=== PATIENT | male | born 1945 | race Hispanic/Latino ===

== ENCOUNTER 2018-01-28 09:19 | Observation (INO) | payer BC ==
--- NOTE | 2018-01-28 09:19 | EDPD ---
HPI Stroke - General Chief Complaint: Weakness/Neurological Deficit Historian: Patient, EMS - History of Present Illness Narrative History of Present Illness (Free Text): 01/28/18 9:18 Patient brought by EMS to the Emergency department for leg weakness and slurred speech. EMS states that patient stated he had symptoms 30 minutes prior to arrival. On site BP was 212/108. patient states that he currently feels fine and states that his slurred speech lasted 5-10 minutes and resolved prior to EMS arrival. Patient denies any history of facial symptoms in the past. Patient denies fevers, chills, cough, shortness of breath, chest pain, dyspnea on exertion, abdominal pain, nausea, vomiting, diarrhea, back pain, neck pain, headache, dizziness, or any other complaint. Onset:: This morning Timing: Improved Context: Home - Location Location: Speech (slurred speech improved 30min prior to arrival) rTPA Inclusion/Exclusion - Refusal of Treatment Patient Refused Treatment: No - Inclusion Criteria for Altepase Patient is 18 years or Older: Yes The Clinical Diagnosis of Ischemic Stroke That is Causing a Potentially Disabling Neurological Deficit: Yes Time of Onset is Well Established to be Less Than 270 Minute Before Treatment Would Begin: Yes Risk/Benefit Discussed With Patient/Family Member Present: No Past Medical History - Provider Review Nursing Documentation Reviewed: Yes - Infectious Disease Hx of Infectious Diseases: None - Tetanus Immunization Tetanus Immunization: Unknown - Cardiac Hx Pacemaker: No - Pulmonary Hx Chronic Obstructive Pulmonary Disease (COPD): Yes - Neurological Hx Paralysis: No - HEENT Hx HEENT Disorder: No - Renal Hx Renal Disorder: No - Endocrine/Metabolic Hx Endocrine Disorders: No - Hematological/Oncological Hx Blood Transfusions: No Hx Blood Transfusion Reaction: No - Integumentary Hx Dermatological Disorder: No - Musculoskeletal/Rheumatological Hx Musculoskeletal Disorders: No - Gastrointestinal Hx Gastrointestinal Disorders: No - Genitourinary/Gynecological Hx Genitourinary Disorders: No - Psychiatric Hx Emotional Abuse: No Hx Physical Abuse: No Hx Substance Use: No - Anesthesia Hx Anesthesia: Yes Hx Anesthesia Reactions: No Hx Malignant Hyperthermia: No - Suicidal Assessment Feels Threatened In Home Enviroment: No Allergies/Home Meds Allergies/Adverse Reactions: Allergies No Known Allergies Allergy (Verified 08/13/14 16:25) Home Medications: Home Meds Medication Instructions Recorded Confirmed Multivitamin and [id number] 1 tab PO DAILY 04/28/12 01/28/18 [Centrum Silver] Budesonide/Formoterol Fumarate 2 puff INH DAILY 08/13/14 01/28/18 [Symbicort] Tiotropium [place] Inhaler 2 puff INH DAILY 08/13/14 01/28/18 [Spiriva Inhalation Handihaler Device] Review of Systems - Physician Review All systems were reviewed & negative as marked: Yes - Review of Systems Constitutional: absent: Fevers, Night Sweats Respiratory: absent: SOB Cardiovascular: absent: Chest Pain Neurological: Speech Changes (slurred speech), Other (lower extremity weakness.) ED Stroke Physical Exam Vital Signs Reviewed: Yes Temperature: Afebrile Blood Pressure: Hypertensive Pulse: Regular Respiratory Rate: Normal Mental Status: Positive for: Alert and Oriented X 3 - Systems Exam Head: Present: Atraumatic, Normocephalic Pupils: Present: PERRL Extroacular Muscles: Present: EOMI Conjunctiva: Present: Normal Mouth: Present: Moist Mucous Membranes Neck: Present: Normal Range of Motion Respiratory/Chest: Present: Clear to Auscultation, Good Air Exchange. No: Respiratory Distress, Accessory Muscle Use Cardiovascular: Present: Regular Rate and Rhythm, Normal S1, S2. No: Murmurs Abdomen: Present: Normal Bowel Sounds. No: Tenderness, Distention, Peritoneal Signs Back: Present: GCS, CN, SP Upper Extremity: Present: Normal Inspection. No: Cyanosis, Edema Lower Extremity: Present: Normal Inspection. No: Edema Neurologic: Present: Other (Right sided facial weakness) Skin: Present: Warm, Dry, Normal Color. No: Rashes Lymphatic: Present: OX3, NI, NC Psychiatric: Present: Alert, Oriented x 3, Normal Insight, Normal Concentration Medical Decision Making ED Course and Treatment: 01/28/18 10:03 Impression: 72 year old male who was brought to the Emergency department by EMS for stroke evaluation. Differential Diagnosis included but are not limited to: TIA Plan: --EKG -- Labs -- Head CT without contrast -- Chest X-ray -- Aspirin -- IV fluids -- Reassess and disposition Prior Visits: Notes and results from previous visits were reviewed. Progress Notes: 01/28/18 EKG shows NSR at 78 bpm, otherwise normal. Interpreted by me. 01/28/18 9:18 Code Stroke called. 01/28/18 9:29 Discussed case with , who stated patient is not a candidate for TPA due to low NIH and quickly resolving symptoms. 01/28/18 09:[address] without contrast: Dictator : Femi Alves MD FINDINGS: HEMORRHAGE: No intracranial hemorrhage. BRAIN: No mass effect or edema. Chronic microvascular changes are seen in the basal ganglia. VENTRICLES: Unremarkable. No hydrocephalus. CALVARIUM: Unremarkable. PARANASAL SINUSES: Unremarkable as visualized. No significant inflammatory changes. MASTOID AIR CELLS: Unremarkable as visualized. No inflammatory changes. OTHER FINDINGS: None. IMPRESSION: No acute findings 01/28/18 09:58 Treated patient with aspirin per rectum because patient was unable to take medication PO due to failed swallow study. 01/28/18 10:54 Reevaluation shows now a NIHSS of zero. Discussed case with , who is aware of and accepts patient under his service. He also requests Dr. Cisneros on consult for neurology. 01/28/18 Chest X-ray: Dictator : Femi Alves MD FINDINGS: LUNGS: No active pulmonary disease. PLEURA: No significant pleural effusion identified, no pneumothorax apparent.\ CARDIOVASCULAR: Normal. OSSEOUS STRUCTURES: No significant abnormalities. VISUALIZED UPPER ABDOMEN: Normal. OTHER FINDINGS: None. IMPRESSION: No active disease. - Critical Care Critical Care Minutes: 30 minutes - RAD Interpretation Radiology Orders: 01/28/18 09:17 HEAD W/O (CODE STROKE) [CT] Stat CHEST PORTABLE [RAD] Stat - EKG Interpretation Interpreted by ED Physician: Yes Type: 12 lead EKG NIHSS Scale([place]) 2 Time Performed: 10:42 - How Severe is the Stoke Baseline Level of Consciousness: 0=Alert LOC to Questions: 0=Both comments correct LOC to commands: 0=Obeys both correctly Best Gaze: 0=Normal Visual: 0=No visual loss Facial: 0=Normal Motor Arm - Left: 0=No drift Motor Arm - Right: 0=No drift Motor Leg - Left: 0=No drift Motor Leg - Right: 0=No drift Limb Ataxia: 0=Absent Sensory: 0=Normal Best Language: 0=No aphasia Dysarthia: 0=Normal articulation Extinction & Inattention (Neglect): 0=Normal, no object Score: 0 Risk Level: No Stroke Risk - Scribe Statement The provider has reviewed the documentation as recorded by the Justin Daniel Provider Scribe Attestation: All medical record entries made by the Scribe were at my direction and personally dictated by me. I have reviewed the chart and agree that the record accurately reflects my personal performance of the history, physical exam, medical decision making, and the department course for this patient. I have also personally directed, reviewed, and agree with the discharge instructions and disposition. NIHSS Scale ([place]) Time Performed: 09:18 - How Severe is the Stoke Baseline Level of Consciousness: 0=Alert LOC to Questions: 0=Both comments correct LOC to commands: 0=Obeys both correctly Best Gaze: 0=Normal Visual: 0=No visual loss Facial: 1=Minor asymmetry Motor Arm - Left: 0=No drift Motor Arm - Right: 0=No drift Motor Leg - Left: 0=No drift Motor Leg - Right: 0=No drift Limb Ataxia: 0=Absent Sensory: 0=Normal Best Language: 0=No aphasia Dysarthia: 0=Normal articulation Extinction & Inattention (Neglect): 0=Normal, no object Score: 1 Risk Level: Minor Stroke Risk Disposition/Present on Arrival - Present on Arrival Any Indicators Present on Arrival: No History of DVT/PE: No History of Uncontrolled Diabetes: No Urinary Catheter: No History Surgical Site Infection Following: None - Disposition Have Diagnosis and Disposition been Completed?: Yes Diagnosis: TIA (transient ischemic attack) Disposition: HOSPITALIZED Disposition Time: 10:42 Patient Plan: Observation Condition: FAIR
[2018-01-28 09:37] LABS: BASO # 0.02 K/mm3 (0.0-2.0); BASO % 0.3 % (0.0-3.0); EOS # 0.1 (0.0-0.7); EOS % 1.4 % (1.5-5.0); GRAN # 4.14 (1.4-6.5); GRAN % 57.6 % (50.0-68.0); HEMOGLOBIN 13.8 g/dL (14.0-18.0); LYMPH # 2.2 (1.2-3.4); LYMPH % 30.8 % (22.0-35.0); MEAN CELL VOLUME 91.1 fl (80.0-105.0); MEAN CORPUSCULAR HEMOGLOBIN 31.4 pg (25.0-35.0); MEAN CORPUSCULAR HGB CONC 34.5 g/dl (31.0-37.0); MEAN PLATELET VOLUME 9.5 fl (7.0-11.0); MONO # 0.7 (0.1-0.6); MONO % 9.9 % (1.0-6.0); RBC 4.39 10^6/uL (3.5-6.1); RED CELL DISTRIBUTION WIDTH 11.9 % (11.5-14.5); WHITE BLOOD COUNT 7.2 10^3/ul (4.5-11.0)
[2018-01-28 09:45] LABS: ALB/GLOB RATIO 1.2 (1.1-1.8); ALT/SGPT 21 U/L (7-56); AST/SGOT 21 U/L (17-59); BLOOD UREA NITROGEN 16 mg/dL (7-21); CALCIUM 9.3 mg/dL (8.4-10.5); GFR NON-AFRICAN AMERICAN > 60; HDL CHOLESTEROL 34 mg/dL (29-60); INR 1.12; PARTIAL THROMBOPLASTIN TIME 69.1 Seconds (25.1-36.5); PROTHROMBIN TIME 12.9 SECONDS (9.4-12.5)
[2018-01-28 09:56] LABS: LDL CHOLESTEROL 89 mg/dL (0-129)
[2018-01-28 09:59] LABS: TROPONIN I < 0.01 ng/mL
--- NOTE | 2018-01-28 09:59 | CT ---
Date of service: 01/28/2018 PROCEDURE: CT HEAD WITHOUT CONTRAST. HISTORY: Code Stroke COMPARISON: None available. TECHNIQUE: Axial computed tomography images were obtained through the head/brain without intravenous contrast. Radiation dose: Total exam DLP = 988 mGy-cm. This CT exam was performed using one or more of the following dose reduction techniques: Automated exposure control, adjustment of the mA and/or kV according to patient size, and/or use of iterative reconstruction technique. FINDINGS: HEMORRHAGE: No intracranial hemorrhage. BRAIN: No mass effect or edema. Chronic microvascular changes are seen in the basal ganglia. VENTRICLES: Unremarkable. No hydrocephalus. CALVARIUM: Unremarkable. PARANASAL SINUSES: Unremarkable as visualized. No significant inflammatory changes. MASTOID AIR CELLS: Unremarkable as visualized. No inflammatory changes. OTHER FINDINGS: None. IMPRESSION: No acute findings
--- NOTE | 2018-01-28 10:07 | RAD ---
Date of service: 01/28/2018 HISTORY: Code Stroke COMPARISON: 08/13/2014 FINDINGS: LUNGS: No active pulmonary disease. PLEURA: No significant pleural effusion identified, no pneumothorax apparent. CARDIOVASCULAR: Normal. OSSEOUS STRUCTURES: No significant abnormalities. VISUALIZED UPPER ABDOMEN: Normal. OTHER FINDINGS: None. IMPRESSION: No active disease.
[2018-01-28] MEDS: Sodium Chloride 0.9% 1,000 ML IV SCH (10:56)
[2018-01-28] MEDS ORDERED: Albuterol-Ipratrop 3 mg / 0.5 (3 ml) UD IH PRN (11:33)
--- NOTE | 2018-01-28 11:34 | CP.PCM.HP ---
<Yassine Mcgeeystal - Last Filed: 01/28/18 12:32> History of Present Illness - History of Present Illness History of Present Illness: H&P for Iván Thayer PGY3 This is a 72yo male with past medical history of COPD, tobacco abuse, venous stasis, borderline HTN who came to ED for sudden weakness and slurred speech. Patient reports he was at work when all of a sudden his legs felt like "jelly" and his speech was slurred according to a friend. This has never happened before. The symptoms lasted 5-10 minutes and resolved prior to arrival. EMS report that patients SBP was >200s. He did not have vision changes, chest pain, headache, shortness of breath, nausea/vomiting/diarrhea, fever/chills. Past medical history: COPD, tobacco abuse, venous stasis, borderline HTN Past surgical history: R inguinal hernia repair, tonsillectomy, sclerotherapy Home meds: Reviewed as per MAR Allergies: NKDA Social history: Smokes 1ppd x 30+yrs, Denies EtoH or drug use. Works at [employer]. Independent in all ADLs Family history: Daughter: . Parents: - doesnt remember from what. Maternal grandma: from cerebral aneurysm Present on Admission - Present on Admission Any Indicators Present on Admission: No Review of Systems - Review of Systems All systems: reviewed and no additional remarkable complaints except Review of Systems: 12 point ROS reviewed as per HPI and is otherwise negative Past Patient History - Infectious Disease Hx of Infectious Diseases: None - Tetanus Immunizations Tetanus Immunization: Unknown - Past Social History Smoking Status: Light Smoker < 10 Cigarettes Daily - CARDIAC Hx Pacemaker: No - PULMONARY Hx Chronic Obstructive Pulmonary Disease (COPD): Yes - NEUROLOGICAL Hx Paralysis: No - HEENT Hx HEENT Problems: No - RENAL Hx Chronic Kidney Disease: No - ENDOCRINE/METABOLIC Hx Endocrine Disorders: No - HEMATOLOGICAL/ONCOLOGICAL Hx Blood Transfusions: No Hx Blood Transfusion Reaction: No - INTEGUMENTARY Hx Dermatological Problems: No - MUSCULOSKELETAL/RHEUMATOLOGICAL Hx Musculoskeletal Disorders: No - GASTROINTESTINAL Hx Gastrointestinal Disorders: No - GENITOURINARY/GYNECOLOGICAL Hx Genitourinary Disorders: No - PSYCHIATRIC Hx Emotional Abuse: No Hx Physical Abuse: No Hx Substance Use: No - SURGICAL HISTORY Hx Surgeries: Yes (MOES PROCEDURE, TONSILLECTOMY, CIRCUMCISION, VASECTOMY) - ANESTHESIA Hx Anesthesia: Yes Hx Anesthesia Reactions: No Hx Malignant Hyperthermia: No Meds Allergies/Adverse Reactions: Allergies Allergy/AdvReac Type Severity Reaction Status Date / Time No Known Allergies Allergy Verified 08/13/14 16:25 Physical Exam - Constitutional Appears: No Acute Distress - Head Exam Head Exam: ATRAUMATIC, NORMAL INSPECTION, NORMOCEPHALIC - Eye Exam Eye Exam: Normal appearance, PERRL Pupil Exam: NORMAL ACCOMODATION, PERRL - ENT Exam ENT Exam: Mucous Membranes Moist - Respiratory Exam Respiratory Exam: Clear to Auscultation Bilateral, NORMAL BREATHING PATTERN. absent: Rales, Rhonchi, Wheezes - Cardiovascular Exam Cardiovascular Exam: REGULAR RHYTHM, +S1, +S2. absent: Gallop, Rubs, Systolic Murmur - GI/Abdominal Exam GI & Abdominal Exam: Normal Bowel Sounds, Soft. absent: Mass, Rebound, Rigid, Tenderness - Extremities Exam Extremities exam: Positive for: normal inspection. Negative for: calf tenderness, pedal edema - Expanded Neurological Exam Expanded Patient oriented to: person, place, time Cranial nerves: EOM's Intact: Normal, Facial Palsey w/Forehead Movement: Normal, Facial Palsey w/o Forehead Movement: Normal, Facial Sensation: Normal, Tongue Deviation: Normal Upper motor neuron: De Neglect: Normal, Pronator Drift: Normal Sensory exam: Lower Extremity Light Touch: Normal, Upper Extremity Light Touch: Normal Neuro motor strength exam: Left Upper Extremity: 5, Right Upper Extremity: 5, Left Lower Extremity: 5, Right Lower Extremity: 5 Coma Scale Eye Opening: SPONTANEOUS Coma Scale Motor Response: OBEYS COMMANDS Coma Scale Verbal: Oriented Coma Scale Total: 15 - Psychiatric Exam Psychiatric exam: Normal Affect, Normal Mood - Skin Skin Exam: Dry, Intact, Warm Results - Vital Signs Recent Vital Signs: Last Vital Signs Temp 98.4 F 01/28/18 09:14 Pulse 79 01/28/18 09:47 Resp 18 01/28/18 09:47 BP 173/70 H 01/28/18 09:47 Pulse Ox 98 01/28/18 09:47 - Labs Result Diagrams: 01/28/18 09:15 01/28/18 09:15 Labs: Laboratory Results - last 24 hr 01/28/18 01/28/18 01/28/18 09:15 09:15 09:15 WBC 7.2 RBC 4.39 Hgb 13.8 L Hct 40.0 L MCV 91.1 MCH 31.4 MCHC 34.5 RDW 11.9 Plt Count 214 MPV 9.5 Gran % 57.6 Lymph % (Auto) 30.8 [place] % (Auto) 9.9 H Eos % (Auto) 1.4 L Baso % (Auto) 0.3 Gran # 4.14 Lymph # (Auto) 2.2 [place] # (Auto) 0.7 H Eos # (Auto) 0.1 Baso # (Auto) 0.02 PT 12.9 H INR 1.12 APTT 69.1 H Sodium 142 Potassium 4.1 Chloride 107 Carbon Dioxide 27 Anion Gap 12 BUN 16 Creatinine 1.1 Est GFR ( Amer) > 60 Est GFR (Non-Af Amer) > 60 Random Glucose 105 Calcium 9.3 Total Bilirubin 0.7 AST 21 ALT 21 Alkaline Phosphatase 111 Troponin I < 0.01 Total Protein 7.3 Albumin 4.0 Globulin 3.3 Albumin/Globulin Ratio 1.2 Triglycerides 76 Cholesterol 140 LDL Cholesterol Direct 89 HDL Cholesterol 34 Assessment & Plan - Assessment and Plan (Free Text) Assessment: 1. TIA 2. Hypertensive urgency 3. COPD 4. Tobacco abuse Plan: Labs and imaging reviewed. Neurology consulted. Head CT negative. Patient is on ASA and Lipitor. Will get PT and swallow eval. MRI and carotid dopplers ordered as per neuro. Permissive HTN for 24hrs. Spiriva and duonebs for COPD. Nicotine patch for tobacco abuse. Patient is on IV fluids. Case seen, discussed and reviewed with Dr. Anant Mcgee PGY3 - Date & Time Date: 01/28/18 Time: 12:48 <Tra Menezes - Last Filed: 01/30/18 19:31> Results - Vital Signs Recent Vital Signs: Last Vital Signs Temp 98.4 F 01/29/18 12:00 Pulse 80 01/29/18 14:00 Resp 20 01/29/18 12:00 BP 151/73 H 01/29/18 12:00 Pulse Ox 95 01/28/18 13:41 - Labs Result Diagrams: 01/28/18 09:15 01/28/18 09:15 Assessment & Plan - Assessment and Plan (Free Text) Plan: Pt seen and examined by me. I have reviewed the note by the medical records assistant. The case was discussed and reviewed with the resident. I reviewed the medications and labs. Pt had a TIA that has resolved. He is on ASA and Lipitor. MRI has been reviewed. BP will be checked as outpt. He is on a nicotine patch. He was advised to quit smoking. COPD is controlled.
[2018-01-28 12:04] VITALS: O2SAT 95
--- NOTE | 2018-01-28 14:37 | CARD ---
APPROVED REPORT Date of service: 01/28/2018 EKG Measurement Heart [id number] <Conclusion> Normal sinus rhythm Normal ECG
--- NOTE | 2018-01-28 18:02 | US ---
PROCEDURE: Bilateral carotid artery duplex ultrasound HISTORY: Carotid stenosis TIA PHYSICIAN(S): Phan Montiel MD. TECHNIQUE: Duplex sonography and color-flow Doppler were used to evaluate the carotid bifurcations and limited segments of the vertebral arteries bilaterally. FINDINGS: There is mild to moderate smooth heterogeneous diffuse echogenic plaque noted at the carotid bifurcations bilaterally. The peak systolic velocity in the proximal right internal carotid artery is 87 cm/sec. This corresponds to a 20 to 39% proximal right ICA stenosis. Normal systolic velocities are noted in the proximal right external carotid artery. There is antegrade flow in the right vertebral artery. The peak systolic velocity in the proximal left internal carotid artery is 76 cm/sec. This corresponds to a 20 to 39% proximal left ICA stenosis. Normal systolic velocities are noted in the proximal left external carotid artery. There is antegrade flow in the left vertebral artery. IMPRESSION: 1. Bilateral 20-39% proximal ICA stenoses. 2. Antegrade flow in both vertebral arteries.
[2018-01-28 20:58] VITALS: BMI 23.8
[2018-01-28] MEDS ORDERED: Influenza Vaccine 60 mcg/0.5 mL SYR (4YR UP) IM ONE (20:59)
[2018-01-28] MEDS ORDERED: Pneumococcal 23-Valent Vaccine IM ONE (20:59)
--- NOTE | 2018-01-28 23:32 | CON ---
DATE: 01/28/2018 HISTORY OF PRESENT ILLNESS: This is a 72-year-old male with past medical history of high blood pressure and went to the market and felt that legs were giving away and also had slurred speech for 5 to 10 minutes and blood pressure was noted to be very high 212/108. Denies any other numbness, tingling. Called to evaluate the patient. PAST MEDICAL HISTORY: High blood pressure, COPD. ALLERGIES: NO KNOWN DRUG ALLERGY. HOME MEDICATIONS : Symbicort and Spiriva inhaler. REVIEW OF SYSTEMS: Ten point review of systems was negative except some slurred speech. PHYSICAL EXAMINATION: HEENT: Normocephalic, atraumatic. NECK: Supple. NEUROLOGIC EXAM: Alert, awake, orientated x3. No aphasia. Cranial nerves II through XII were tested. Pupils reactive. EOM intact. Visual field full. No facial asymmetry. Tongue midline. Motor examination: Moves all the extremities equally. Tone normal. Deep tendon reflexes 1+. Both plantars are downgoing. Sensory appears intact. Cerebellar, gait deferred. IMPRESSION: Transient ischemic attack, possible in the left middle cerebral artery territory. CAT scan of the head was done, which is reported negative for bleed or infarct. We will continue the workup and carotid Doppler and give aspirin and workup in progress. We will follow it up. We also do the MRI of the head, with and without. Austin Cisneros MD
[2018-01-29 06:05] VITALS: RESP 20
[2018-01-29] MEDS: Sodium Chloride 0.9% 1,000 ML IV SCH (09:50)
[2018-01-29] MEDS ORDERED: Tiotropium 18 mcg Cap For Inhalation IH SCH (10:00)
--- NOTE | 2018-01-29 13:31 | CP.PCM.DIS ---
Addendum entered and electronically signed by Roselyn Mcgee DO 01/29/18 16:59: Spoke with Radiologist, Dr. Perry who states MRI was negative. Original Note: <Roselyn Mcgee - Last Filed: 01/29/18 13:19> Provider - Provider Date of Admission: 01/28/18 10:42 Attending physician: Tra Menezes MD Primary care physician: Wu Manning MD Consults: Neuro: Blayne Time Spent in preparation of Discharge (in minutes): 35 Hospital Course - Lab Results Lab Results: Most Recent Lab Values WBC 7.2 10^3/ul (4.5-11.0) 01/28/18 09:15 RBC 4.39 10^6/uL (3.5-6.1) 01/28/18 09:15 Hgb 13.8 g/dL (14.0-18.0) L 01/28/18 09:15 Hct 40.0 % (42.0-52.0) L 01/28/18 09:15 MCV 91.1 fl (80.0-105.0) 01/28/18 09:15 MCH 31.4 pg (25.0-35.0) 01/28/18 09:15 MCHC 34.5 g/dl (31.0-37.0) 01/28/18 09:15 RDW 11.9 % (11.5-14.5) 01/28/18 09:15 Plt Count 214 10^3/uL (120.0-450.0) 01/28/18 09:15 MPV 9.5 fl (7.0-11.0) 01/28/18 09:15 Gran % 57.6 % (50.0-68.0) 01/28/18 09:15 Lymph % (Auto) 30.8 % (22.0-35.0) 01/28/18 09:15 [place] % (Auto) 9.9 % (1.0-6.0) H 01/28/18 09:15 Eos % (Auto) 1.4 % (1.5-5.0) L 01/28/18 09:15 Baso % (Auto) 0.3 % (0.0-3.0) 01/28/18 09:15 Gran # 4.14 (1.4-6.5) 01/28/18 09:15 Lymph # (Auto) 2.2 (1.2-3.4) 01/28/18 09:15 [place] # (Auto) 0.7 (0.1-0.6) H 01/28/18 09:15 Eos # (Auto) 0.1 (0.0-0.7) 01/28/18 09:15 Baso # (Auto) 0.02 K/mm3 (0.0-2.0) 01/28/18 09:15 PT 12.9 SECONDS (9.4-12.5) H 01/28/18 09:15 INR 1.12 01/28/18 09:15 APTT 69.1 Seconds (25.1-36.5) H 01/28/18 09:15 Sodium 142 mmol/L (132-148) 01/28/18 09:15 Potassium 4.1 mmol/L (3.6-5.0) 01/28/18 09:15 Chloride 107 mmol/L (98-107) 01/28/18 09:15 Carbon Dioxide 27 mmol/L (21-33) 01/28/18 09:15 Anion Gap 12 (10-20) 01/28/18 09:15 BUN 16 mg/dL (7-21) 01/28/18 09:15 Creatinine 1.1 mg/dl (0.8-1.5) 01/28/18 09:15 Est GFR ( Amer) > 60 01/28/18 09:15 Est GFR (Non-Af Amer) > 60 01/28/18 09:15 Random Glucose 105 mg/dL (70-110) 01/28/18 09:15 Hemoglobin A1c 5.8 % (4.2-6.5) 01/28/18 09:15 Calcium 9.3 mg/dL (8.4-10.5) 01/28/18 09:15 Total Bilirubin 0.7 mg/dL (0.2-1.3) 01/28/18 09:15 AST 21 U/L (17-59) 01/28/18 09:15 ALT 21 U/L (7-56) 01/28/18 09:15 Alkaline Phosphatase 111 U/L (38-126) 01/28/18 09:15 Troponin I < 0.01 ng/mL 01/28/18 09:15 Total Protein 7.3 g/dL (5.8-8.3) 01/28/18 09:15 Albumin 4.0 g/dL (3.0-4.8) 01/28/18 09:15 Globulin 3.3 gm/dL 01/28/18 09:15 Albumin/Globulin Ratio 1.2 (1.1-1.8) 01/28/18 09:15 Triglycerides 76 mg/dL (35-160) 01/28/18 09:15 Cholesterol 140 mg/dL (130-200) 01/28/18 09:15 LDL Cholesterol Direct 89 mg/dL (0-129) 01/28/18 09:15 HDL Cholesterol 34 mg/dL (29-60) 01/28/18 09:15 Blood Type B POSITIVE 01/28/18 09:20 Blood Type Confirm B POSITIVE 01/28/18 15:30 Antibody Screen Negative 01/28/18 09:20 BBK History Checked No verified bt 01/28/18 09:20 - Hospital Course Hospital Course: This is a 72yo male with past medical history of COPD, tobacco abuse, venous stasis, borderline HTN who was admitted for TIA. Patient had head CT which was negative for acute abnormalities. Carotid US showed 20-39% stenosis bilaterally. Patient was placed on ASA and Lipitor. He was evaluated by neurology. Patient will get MRI of the brain. If there are no acute abnormalities, patient will be d/c home with ASA and Lipitor. He will follow up with his PMD. Patient advised on smoking cessation. He does not have any focal neurological deficits. Patient verbalized and agreed with discharge plan. - Date & Time of H&P Date of H&P: 01/28/18 Time of H&P: 06:00 Discharge Exam - Head Exam Head Exam: ATRAUMATIC, NORMAL INSPECTION, NORMOCEPHALIC - Eye Exam Eye Exam: Normal appearance, PERRL Pupil Exam: NORMAL ACCOMODATION, PERRL - ENT Exam ENT Exam: Mucous Membranes Moist - Respiratory Exam Respiratory Exam: Clear to PA & Lateral, NORMAL BREATHING PATTERN, UNREMARKABLE. absent: Rhonchi, Wheezes, Stridor - Cardiovascular Exam Cardiovascular Exam: REGULAR RHYTHM, +S1, +S2. absent: Gallop, Rubs, Systolic Murmur - GI/Abdominal Exam GI & Abdominal Exam: Normal Bowel Sounds, Soft, Unremarkable. absent: Rebound, Rigid, Tenderness - Extremities Exam Extremities exam: normal inspection - Neurological Exam Neurological exam: Alert, CN II-XII Intact, Oriented x3 - Psychiatric Exam Psychiatric exam: Normal Affect, Normal Mood - Skin Skin Exam: Dry, Intact, Warm Discharge Plan - Discharge Medications Prescriptions: RX: Aspirin [Aspirin Chewable] 81 mg PO DAILY #30 chew RX: Atorvastatin [Lipitor] 20 mg PO DIN #30 tab - Follow Up Plan Condition: FAIR Disposition: HOME/ ROUTINE Additional Instructions: 1. Take Aspirin and Lipitor daily 2. Follow up with primary doctor to monitor blood pressure 3. Recommend smoking cessation Referrals: Wu Manning MD [Primary Care Provider] - <Tra Menezes - Last Filed: 01/29/18 14:11> Provider - Provider Date of Admission: 01/28/18 10:42 Attending physician: Tra Menezes MD Primary care physician: Wu Manning MD Hospital Course - Lab Results Lab Results: Most Recent Lab Values WBC 7.2 10^3/ul (4.5-11.0) 01/28/18 09:15 RBC 4.39 10^6/uL (3.5-6.1) 01/28/18 09:15 Hgb 13.8 g/dL (14.0-18.0) L 01/28/18 09:15 Hct 40.0 % (42.0-52.0) L 01/28/18 09:15 MCV 91.1 fl (80.0-105.0) 01/28/18 09:15 MCH 31.4 pg (25.0-35.0) 01/28/18 09:15 MCHC 34.5 g/dl (31.0-37.0) 01/28/18 09:15 RDW 11.9 % (11.5-14.5) 01/28/18 09:15 Plt Count 214 10^3/uL (120.0-450.0) 01/28/18 09:15 MPV 9.5 fl (7.0-11.0) 01/28/18 09:15 Gran % 57.6 % (50.0-68.0) 01/28/18 09:15 Lymph % (Auto) 30.8 % (22.0-35.0) 01/28/18 09:15 [place] % (Auto) 9.9 % (1.0-6.0) H 01/28/18 09:15 Eos % (Auto) 1.4 % (1.5-5.0) L 01/28/18 09:15 Baso % (Auto) 0.3 % (0.0-3.0) 01/28/18 09:15 Gran # 4.14 (1.4-6.5) 01/28/18 09:15 Lymph # (Auto) 2.2 (1.2-3.4) 01/28/18 09:15 [place] # (Auto) 0.7 (0.1-0.6) H 01/28/18 09:15 Eos # (Auto) 0.1 (0.0-0.7) 01/28/18 09:15 Baso # (Auto) 0.02 K/mm3 (0.0-2.0) 01/28/18 09:15 PT 12.9 SECONDS (9.4-12.5) H 01/28/18 09:15 INR 1.12 01/28/18 09:15 APTT 69.1 Seconds (25.1-36.5) H 01/28/18 09:15 Sodium 142 mmol/L (132-148) 01/28/18 09:15 Potassium 4.1 mmol/L (3.6-5.0) 01/28/18 09:15 Chloride 107 mmol/L (98-107) 01/28/18 09:15 Carbon Dioxide 27 mmol/L (21-33) 01/28/18 09:15 Anion Gap 12 (10-20) 01/28/18 09:15 BUN 16 mg/dL (7-21) 01/28/18 09:15 Creatinine 1.1 mg/dl (0.8-1.5) 01/28/18 09:15 Est GFR ( Amer) > 60 01/28/18 09:15 Est GFR (Non-Af Amer) > 60 01/28/18 09:15 Random Glucose 105 mg/dL (70-110) 01/28/18 09:15 Hemoglobin A1c 5.8 % (4.2-6.5) 01/28/18 09:15 Calcium 9.3 mg/dL (8.4-10.5) 01/28/18 09:15 Total Bilirubin 0.7 mg/dL (0.2-1.3) 01/28/18 09:15 AST 21 U/L (17-59) 01/28/18 09:15 ALT 21 U/L (7-56) 01/28/18 09:15 Alkaline Phosphatase 111 U/L (38-126) 01/28/18 09:15 Troponin I < 0.01 ng/mL 01/28/18 09:15 Total Protein 7.3 g/dL (5.8-8.3) 01/28/18 09:15 Albumin 4.0 g/dL (3.0-4.8) 01/28/18 09:15 Globulin 3.3 gm/dL 01/28/18 09:15 Albumin/Globulin Ratio 1.2 (1.1-1.8) 01/28/18 09:15 Triglycerides 76 mg/dL (35-160) 01/28/18 09:15 Cholesterol 140 mg/dL (130-200) 01/28/18 09:15 LDL Cholesterol Direct 89 mg/dL (0-129) 01/28/18 09:15 HDL Cholesterol 34 mg/dL (29-60) 01/28/18 09:15 Blood Type B POSITIVE 01/28/18 09:20 Blood Type Confirm B POSITIVE 01/28/18 15:30 Antibody Screen Negative 01/28/18 09:20 BBK History Checked No verified bt 01/28/18 09:20 - Hospital Course Hospital Course: Pt seen and examined by me. I have reviewed the note by the medical lab specialist. The case was discussed and reviewed with the resident. I reviewed the medications and labs. Pt with TIA. He will be on ASA. He will continue with Lipitor. He is waiting for MRI to be done. If it is negative then pt will D/C home. Pt with no neurological issues. Pt is able to ambulate. F/U out pt for mild elevated BP.
[2018-01-29 14:09] VITALS: BP 151/73; TEMP 98.4
[2018-01-29] MEDS ORDERED: Gadodiamide 287 MG/ML VIAL (15ML) IV ONE (15:13)
[2018-01-29 18:29] VITALS: PULSE 80
--- NOTE | 2018-01-31 08:40 | MRI ---
Date of service: 01/29/2018 PROCEDURE: MRI BRAIN WITH AND WITHOUT CONTRAST HISTORY: TIA COMPARISON: None available. TECHNIQUE: Multiplanar, multisequence MR images of the brain were obtained with and without intravenous contrast enhancement. 15 cc of Omniscan FINDINGS: HEMORRHAGE: None DWI: No evidence of an acute or early subacute infarction. BRAIN PARENCHYMA: No mass,mass effect or edema. No atrophy or chronic microvascular ischemic changes. ENHANCEMENT: No abnormal intracranial enhancement. VENTRICLES: Unremarkable. No hydrocephalus. CRANIUM: Unremarkable. ORBITS: Grossly unremarkable. PARANASAL SINUSES/MASTOIDS: Clear VASCULAR SYSTEM: Skull base flow voids intact. OTHER FINDINGS: None . IMPRESSION: Unremarkable pre and post contrast enhanced MRI of the brain.
== END 2018-01-29 18:27 | disposition home or self-care (01) ==
LOC: ED 09:19 → ERH 10:42 → 2RSO 13:46
PROVIDERS: ADMIT Internal Medicine Nephrology; ATTEND Internal Medicine Nephrology
DX: G45.9 Transient cerebral ischemic attack, unspecified (principal); I16.0 Hypertensive urgency; J44.9 Chronic obstructive pulmonary disease, unspecified; I87.8 Other specified disorders of veins; I65.23 Occlusion and stenosis of bilateral carotid arteries; F17.210 Nicotine dependence, cigarettes, uncomplicated; Z98.52 Vasectomy status; Z79.82 Long term (current) use of aspirin
CPT/HCPCS: 70450; 70551; 70553; 71045; 80053; 80061; 83036; 84484; 85025; 85610; 85730; 86850; 86900; 92610; 93005; 93880; 97116; 97161; 99285; A9579; G0378; G8978; G8979; G8996; G8997; G8998; J7030

== ENCOUNTER 2018-06-16 10:01 | Outpatient (CLI) | payer BC | END 2018-06-16 10:02 | disposition home or self-care (01) | LOC: PAT 10:01 ==

== ENCOUNTER 2018-07-06 06:22 | Day surgery (SDC) | payer BC | END 2018-07-06 13:00 | disposition home or self-care (01) | LOC: SDS 06:22 ==

== ENCOUNTER 2018-08-31 22:14 | Inpatient (IN) | payer BC, MEDICARE ==
[2018-08-31] MEDS ORDERED: Sodium Chloride 0.9% 1,000 ML IV STA (23:13)
--- NOTE | 2018-08-31 23:28 | ED PDOC ---
Arrival/HPI - General Chief Complaint: Abnormal Labs Time Seen by Provider: 08/31/18 22:32 Historian: Patient - History of Present Illness Narrative History of Present Illness (Text): 08/31/18 23:34 A 73 year old male, whose past medical history includes COPD, presents to the emergency department sent by Dr. Manning to have blood transfusion done. Patient reports he had bloodwork done yesterday and Dr. Manning called stating his he moglobin was 6, directing patient to be seen in the ER. Patient mentions having blood work done some time last year and was told he is anemic. Patient suppose to follow-up with Dr. Cloud at the time, however never did so. Patient notes also experiencing dark stools for the past 2 months since having prostate biopsy performed by Dr. Mccurdy. He was told that the dark stools would eventually resolve, however they did not. Patient denies any dizziness, syncope, chest pain, dyspnea on exertion (aside from baseline secondary to COPD), abdominal pain, or any other complaints at this time. Past Medical History - Provider Review Nursing Documentation Reviewed: Yes Primary Care Provider: Wu Manning - Infectious Disease Hx of Infectious Diseases: None - Tetanus Immunization Tetanus Immunization: Unknown - Cardiac Hx Pacemaker: No - Pulmonary Hx Chronic Obstructive Pulmonary Disease (COPD): Yes - Neurological Hx Paralysis: No - HEENT Hx HEENT Disorder: Yes (eyeglasses) Other/Comment: cap right upper tooth fell out while pt was eating dinner at bedside, pt did not swallow it, put in plastic bag at bedside - Renal Hx Renal Disorder: No - Endocrine/Metabolic Hx Endocrine Disorders: No - Integumentary Hx Dermatological Disorder: Yes (dry skin) - Musculoskeletal/Rheumatological Hx Musculoskeletal Disorders: Yes (SPINAL STENOSIS) - Gastrointestinal Hx Gastrointestinal Disorders: Yes Other/Comment: 04/29/2012 colonoscopy dx diverticulosis, hemorrhoids, with ulceration - Genitourinary/Gynecological Hx Genitourinary Disorders: No - Psychiatric Hx Emotional Abuse: No Hx Physical Abuse: No Hx Substance Use: No - Surgical History Other/Comment: r inguinal hernia sx, tonsillectomy age 9, circumcision age 23, vasectomy, basal cell removed using mohs procedure from face, forehead right cheek and left cheek - Anesthesia Hx Anesthesia Reactions: No Hx Malignant Hyperthermia: No - Suicidal Assessment Feels Threatened In Home Enviroment: No Family/Social History - Physician Review Nursing Documentation Reviewed: Yes Family/Social History: No Known Family HX Smoking Status: Heavy Smoker > 10 Cigarettes Daily Hx Alcohol Use: Yes (WINE OCCASIONALLY) Hx Substance Use: No Hx Substance Use Treatment: No Allergies/Home Meds Allergies/Adverse Reactions: Allergies No Known Allergies Allergy (Verified 06/16/18 11:06) Home Medications: Home Meds Medication Instructions Recorded Confirmed Budesonide/Formoterol Fumarate 2 puff INH DAILY 08/13/14 09/01/18 [Symbicort 160-4.5 Mcg Inhaler] Tiotropium [place] Inhaler 2 puff INH DAILY 08/13/14 09/01/18 [Spiriva Inhalation Handihaler Device] Multivit-Min/FA/Lycopen/Lutein 1 each PO DAILY 01/28/18 09/01/18 [Centrum Silver Men Tablet] Losartan Potassium 100 mg PO QPM 06/16/18 09/01/18 amLODIPine [Norvasc] 5 mg PO QPM 06/16/18 09/01/18 Review of Systems - Physician Review All systems were reviewed & negative as marked: Yes - Review of Systems Cardiovascular: absent: Chest Pain, MAHONEY (aside from baseline secondary to COPD), Syncope Gastrointestinal: Stool Changes (dark stools). absent: Abdominal Pain Neurological: absent: Dizziness Physical Exam Vital Signs Reviewed: Yes Temperature: Afebrile Blood Pressure: Normal Pulse: Regular Respiratory Rate: Normal Appearance: Positive for: Well-Appearing, Non-Toxic, Comfortable Pain Distress: None Mental Status: Positive for: Alert and Oriented X 3 - Systems Exam Head: Present: Atraumatic, Normocephalic Pupils: Present: PERRL Extroacular Muscles: Present: EOMI Conjunctiva: Present: Normal Mouth: Present: Moist Mucous Membranes Neck: Present: Normal Range of Motion Respiratory/Chest: Present: Clear to Auscultation, Good Air Exchange. No: Respiratory Distress, Accessory Muscle Use Cardiovascular: Present: Regular Rate and Rhythm, Normal S1, S2. No: Murmurs Abdomen: No: Tenderness, Distention, Peritoneal Signs Rectal: Present: Occult Blood (hemocult positive). No: Rectal Tenderness, Hemorrhoids Back: Present: Normal Inspection Upper Extremity: Present: Normal Inspection. No: Cyanosis, Edema Lower Extremity: Present: Normal Inspection. No: Edema Neurological: Present: GCS=15, CN II-XII Intact, Speech Normal Skin: Present: Warm, Dry, Normal Color. No: Rashes Psychiatric: Present: Alert, Oriented x 3, Normal Insight, Normal Concentration Medical Decision Making ED Course and Treatment: 08/31/18 23:41 Impression: 73 year old male sent for blood transfusion, and notes also experiencing dark stools. Plan: -- Labs -- IV Fluids -- Reassess and disposition Progress Notes: 08/31/18 23:48 EKG: Ordered, reviewed, and independently interpreted the EKG. Rate : 83 BPM Rhythm : NSR Interpretation : Normal access, normal intervals, no ST elevations, LVH, minimal ST depression in lateral leads. Comparison : No previous EKG for comparison. Patient seen and examined. Rectal exam done, dark brown hemoccult positive stool. Labs done and anemia noted. 2u PRBC ordered. Patient hemodynamically stable throughout ED course, with no complaints. Case discussed with Dr. Menezes admitting for Dr. Manning, accepts patient for admission to his service. Agrees with plan to consult Dr. Penaloza for GI. Consent obtained for blood transfusion. - Medication Orders Current Medication Orders: Sodium Chloride (Sodium Chloride 0.9%) 1,000 mls @ 999 mls/hr IV .Q1H1M STA Stop: 09/01/18 00:13 - Scribe Statement The provider has reviewed the documentation as recorded by the Justin Smyth Provider Scribe Attestation: All medical record entries made by the Scribmarina were at my direction and personally dictated by me. I have reviewed the chart and agree that the record accurately reflects my personal performance of the history, physical exam, medical decision making, and the department course for this patient. I have also personally directed, reviewed, and agree with the discharge instructions and disposition. Disposition/Present on Arrival - Present on Arrival Any Indicators Present on Arrival: No History of DVT/PE: No History of Uncontrolled Diabetes: No Urinary Catheter: No History of Decub. Ulcer: No History Surgical Site Infection Following: None - Disposition Have Diagnosis and Disposition been Completed?: Yes Diagnosis: GI bleed Disposition: HOSPITALIZED Disposition Time: 00:50 Condition: STABLE
[2018-09-01 00:14] LABS: BASO # 0.02 K/mm3 (0.0-2.0); BASO % 0.3 % (0.0-3.0); EOS # 0.1 (0.0-0.7); EOS % 0.9 % (1.5-5.0); LYMPH # 1.5 (1.2-3.4); LYMPH % 22.8 % (22.0-35.0); MEAN CELL VOLUME 93.2 fl (80.0-105.0); MEAN CORPUSCULAR HEMOGLOBIN 29.7 pg (25.0-35.0); MEAN CORPUSCULAR HGB CONC 31.9 g/dl (31.0-37.0); MEAN PLATELET VOLUME 9.3 fl (7.0-11.0); MONO # 0.7 (0.1-0.6); MONO % 9.7 % (1.0-6.0); RBC 2.22 10^6/uL (3.5-6.1); RED CELL DISTRIBUTION WIDTH 12.9 % (11.5-14.5); WHITE BLOOD COUNT 6.7 10^3/uL (4.5-11.0)
[2018-09-01 00:18] LABS: INR 1.14; PARTIAL THROMBOPLASTIN TIME 72.7 Seconds (26.9-38.3); PROTHROMBIN TIME 12.7 SECONDS (9.4-12.5)
[2018-09-01 00:19] LABS: ALB/GLOB RATIO 1.3 (1.1-1.8); ALBUMIN 3.9 g/dL (3.0-4.8); ALT/SGPT 21 U/L (7-56); AST/SGOT 24 U/L (17-59); BLOOD UREA NITROGEN 26 mg/dL (7-21); GFR NON-AFRICAN AMERICAN 50
[2018-09-01 00:22] LABS: HEMOGLOBIN 6.6 g/dL (14.0-18.0)
[2018-09-01 04:32] VITALS: BMI 24.8
[2018-09-01 06:26] LABS: HEMOGLOBIN 7.2 g/dL (14.0-18.0); MEAN CELL VOLUME 92.5 fl (80.0-105.0); MEAN CORPUSCULAR HGB CONC 32.4 g/dl (31.0-37.0); MEAN PLATELET VOLUME 9.5 fl (7.0-11.0); RBC 2.4 10^6/uL (3.5-6.1); RED CELL DISTRIBUTION WIDTH 12.8 % (11.5-14.5)
[2018-09-01] MEDS: Arformoterol 15 mcg/2 ml Inh Sol IH SCH (08:03)
[2018-09-01] MEDS: Budesonide 0.5 mg/2 ml Inhal Susp UD IH SCH (08:04)
[2018-09-01 09:47] LABS: INR 1.19; PARTIAL THROMBOPLASTIN TIME 66.5 Seconds (26.9-38.3); PROTHROMBIN TIME 13.5 SECONDS (9.4-12.5)
[2018-09-01] MEDS: Tiotropium 18 mcg Cap For Inhalation INH SCH (10:28)
[2018-09-01 10:37] VITALS: O2SAT 96
--- NOTE | 2018-09-01 10:45 | CARD ---
APPROVED REPORT Date of service: 08/31/2018 EKG Measurement Heart [id number] <Conclusion> Sinus rhythm with premature atrial complexes Left ventricular hypertrophy with repolarization abnormality Abnormal ECG
[2018-09-01 13:28] LABS: IRON 25 ug/dL (45-180)
[2018-09-01 13:37] LABS: % IRON SATURATION 5 % (20-55); TOTAL IRON BINDING CAPACITY 462 ug/dL (261-462)
--- NOTE | 2018-09-01 16:38 | CP.PCM.CON ---
<Ronald De La Paz - Last Filed: 09/01/18 16:53> History of Present Illness - History of Present Illness History of Present Illness: PGY6 GI Fellow Consult Note Patient is a 73yo male with PMHx significant for COPD and HTN who presented to the ED, sent by PCP for evaluation of anemia. The patient had routine outpatient blood work with his PCP and was noted to be anemic with repeat CBC in the ED showing HGB of 6.6. The patient admits to occasional epigastric discomfort and has had dark stool over the last month. Notes worsening fatigue and dyspnea on exertion, specifically mentioning more significant fatigue when climbing flights of stairs. Believes symptoms may have developed following initiation of ASA 81mg daily or following prostate biopsy in June. He does admit to seeing bloody dis charge with ejaculation. He denies any iron supplementation or Pepto Bismol use. Denies any overt hematochezia or hematemesis. 12 system ROS performed and negative except where stated PMHx: See HPI PSHx: Right inguinal hernia repair, tonsillectomy FHx: Daughter - MS Social: 1ppd smoker for >30 years, denies EtOH or illicit drug use Past Patient History - Infectious Disease Hx of Infectious Diseases: None - Tetanus Immunizations Tetanus Immunization: Unknown - Past Social History Smoking Status: Heavy Smoker > 10 Cigarettes Daily - CARDIAC Hx Pacemaker: No - PULMONARY Hx Chronic Obstructive Pulmonary Disease (COPD): Yes - NEUROLOGICAL Hx Paralysis: No - HEENT Hx HEENT Problems: Yes (eyeglasses) Other/Comment: cap right upper tooth fell out while pt was eating dinner at bedside, pt did not swallow it, put in plastic bag at bedside - RENAL Hx Chronic Kidney Disease: No - ENDOCRINE/METABOLIC Hx Endocrine Disorders: No - HEMATOLOGICAL/ONCOLOGICAL Hx Blood Disorders: Yes Hx Cancer: Yes (skin ca basal cell) Other/Comment: basal cell removed from face, left cheek, right cheek, forehead using mohs procedure - INTEGUMENTARY Hx Dermatological Problems: Yes (dry skin) - MUSCULOSKELETAL/RHEUMATOLOGICAL Hx Musculoskeletal Disorders: Yes (SPINAL STENOSIS) - GASTROINTESTINAL Hx Gastrointestinal Disorders: Yes Other/Comment: 04/29/2012 colonoscopy dx diverticulosis, hemorrhoids, with ulceration - GENITOURINARY/GYNECOLOGICAL Hx Genitourinary Disorders: No - PSYCHIATRIC Hx Emotional Abuse: No Hx Physical Abuse: No Hx Substance Use: No - SURGICAL HISTORY Other/Comment: r inguinal hernia sx, tonsillectomy age 9, circumcision age 23, vasectomy, basal cell removed using mohs procedure from face, forehead right cheek and left cheek - ANESTHESIA Hx Anesthesia Reactions: No Hx Malignant Hyperthermia: No Meds Allergies/Adverse Reactions: Allergies Allergy/AdvReac Type Severity Reaction Status Date / Time No Known Allergies Allergy Verified 06/16/18 11:06 - Medications Medications: Current Medications Amlodipine Besylate (Norvasc) 5 mg PO QPM [facility] Arformoterol Tartrate (Brovana) 15 mcg IH DAILY@0800 [facility] Last Admin: 09/01/18 08:03 Dose: 15 mcg Atorvastatin Calcium (Lipitor) 20 mg PO DIN [facility] Budesonide (Pulmicort Respules) 0.5 mg IH DAILY@0800 [facility] Last Admin: 09/01/18 08:04 Dose: 0.5 mg Losartan Potassium (Cozaar) 100 mg PO QPM [facility] Nicotine (Nicoderm Cq) 1 patch TD DAILY [facility] Last Admin: 09/01/18 10:27 Dose: 1 patch Pantoprazole Sodium (Protonix Inj) 40 mg IVP Q12 [facility] Tiotropium [place] (Spiriva) 18 mcg INH DAILY [facility] Last Admin: 09/01/18 10:28 Dose: 18 mcg Physical Exam - Constitutional Appears: Non-toxic, No Acute Distress - Eye Exam Eye Exam: EOMI, PERRL - ENT Exam ENT Exam: Mucous Membranes Moist - Respiratory Exam Respiratory Exam: Clear to Auscultation Bilateral. absent: Rales, Rhonchi, Wheezes - Cardiovascular Exam Cardiovascular Exam: RRR, +S1, +S2 - GI/Abdominal Exam GI & Abdominal Exam: Normal Bowel Sounds, Soft. absent: Distended, Firm, Guarding, Mass, Organomegaly, Rigid, Tenderness - Rectal Exam Rectal Exam: Hemorrhoids. absent: Black Stool, Bloody Stool Additional comments: formed, dark brown stool - Extremities Exam Extremities exam: Positive for: normal inspection. Negative for: pedal edema - Neurological Exam Neurological exam: Alert, Oriented x3 - Psychiatric Exam Psychiatric exam: Normal Affect, Normal Mood - Skin Skin Exam: Dry, Warm Results - Vital Signs Recent Vital Signs: Last Vital Signs Temp 98.2 F 09/01/18 08:00 Pulse 90 09/01/18 08:10 Resp 18 09/01/18 08:00 BP 129/56 L 09/01/18 08:00 Pulse Ox 96 09/01/18 06:00 - Labs Result Diagrams: 09/01/18 06:00 08/31/18 23:30 Labs: Laboratory Results - last 24 hr 08/31/18 08/31/18 08/31/18 23:30 23:30 23:30 WBC 6.7 RBC 2.22 L Hgb 6.6 L* D Hct 20.7 L* MCV 93.2 MCH 29.7 MCHC 31.9 RDW 12.9 Plt Count 229 MPV 9.3 Neut % (Auto) 66.3 Lymph % (Auto) 22.8 [place] % (Auto) 9.7 H Eos % (Auto) 0.9 L Baso % (Auto) 0.3 Lymph # (Auto) 1.5 [place] # (Auto) 0.7 H Eos # (Auto) 0.1 Baso # (Auto) 0.02 Absolute Neuts (auto) 4.43 PT 12.7 H INR 1.14 APTT 72.7 H Sodium 141 Potassium 4.0 Chloride 109 H Carbon Dioxide 25 Anion Gap 11 BUN 26 H Creatinine 1.4 Est GFR ( Amer) > 60 Est GFR (Non-Af Amer) 50 Random Glucose 103 Calcium 9.0 Iron TIBC % Saturation Total Bilirubin 0.2 AST 24 ALT 21 Alkaline Phosphatase 96 Total Protein 6.8 Albumin 3.9 Globulin 2.9 Albumin/Globulin Ratio 1.3 Blood Type Antibody Screen Crossmatch BBK History Checked 08/31/18 09/01/18 09/01/18 23:30 06:00 09:20 WBC 8.0 RBC 2.40 L Hgb 7.2 L Hct 22.2 L MCV 92.5 MCH 30.0 MCHC 32.4 RDW 12.8 Plt Count 202 MPV 9.5 Neut % (Auto) Lymph % (Auto) [place] % (Auto) Eos % (Auto) Baso % (Auto) Lymph # (Auto) [place] # (Auto) Eos # (Auto) Baso # (Auto) Absolute Neuts (auto) PT 13.5 H INR 1.19 APTT 66.5 H Sodium Potassium Chloride Carbon Dioxide Anion Gap BUN Creatinine Est GFR ( Amer) Est GFR (Non-Af Amer) Random Glucose Calcium Iron TIBC % Saturation Total Bilirubin AST ALT Alkaline Phosphatase Total Protein Albumin Globulin Albumin/Globulin Ratio Blood Type B POSITIVE Antibody Screen Negative Crossmatch See Detail BBK History Checked Patient has bt 09/01/18 13:10 WBC RBC Hgb Hct MCV MCH MCHC RDW Plt Count MPV Neut % (Auto) Lymph % (Auto) [place] % (Auto) Eos % (Auto) Baso % (Auto) Lymph # (Auto) [place] # (Auto) Eos # (Auto) Baso # (Auto) Absolute Neuts (auto) PT INR APTT Sodium Potassium Chloride Carbon Dioxide Anion Gap BUN Creatinine Est GFR ( Amer) Est GFR (Non-Af Amer) Random Glucose Calcium Iron 25 L TIBC 462 % Saturation 5 L Total Bilirubin AST ALT Alkaline Phosphatase Total Protein Albumin Globulin Albumin/Globulin Ratio Blood Type Antibody Screen Crossmatch BBK History Checked Assessment & Plan - Assessment and Plan (Free Text) Assessment: Patient is a 73yo male with PMHx significant for COPD and HTN who presented to the ED, sent by PCP for evaluation of anemia -Chronic normocytic anemia -Chronic elevation of elevation of PT/PTT -COPD -HTN Plan: -Rectal examination with formed, brown stool -S/P 2 units PRBCs -Trend H/H -Liquid diet -Check CT abdomen/pelvis with oral contrast - Cr 1.4 on most recent BMP thus hold IV contrast -Recommend hematology consultation given chronic prolonged PT/PTT - R/O coagulopathy, factor deficiency -Patient would benefit from endoscopic evaluation - timing to be determined by above work up -Diet as tolerated - Date & Time Date: 09/01/18 Time: 09:00 <All Penaloza V - Last Filed: 09/01/18 22:16> Meds - Medications Medications: Current Medications Amlodipine Besylate (Norvasc) 5 mg PO QPM [facility] Last Admin: 09/01/18 17:22 Dose: 5 mg Arformoterol Tartrate (Brovana) 15 mcg IH DAILY@0800 [facility] Last Admin: 09/01/18 08:03 Dose: 15 mcg Atorvastatin Calcium (Lipitor) 20 mg PO DIN [facility] Last Admin: 09/01/18 17:23 Dose: 20 mg Budesonide (Pulmicort Respules) 0.5 mg IH DAILY@0800 [facility] Last Admin: 09/01/18 08:04 Dose: 0.5 mg Losartan Potassium (Cozaar) 100 mg PO QPM [facility] Last Admin: 09/01/18 17:22 Dose: 100 mg Nicotine (Nicoderm Cq) 1 patch TD DAILY [facility] Last Admin: 09/01/18 10:27 Dose: 1 patch Pantoprazole Sodium (Protonix Inj) 40 mg IVP Q12 [facility] Last Admin: 09/01/18 21:35 Dose: 40 mg Tiotropium [place] (Spiriva) 18 mcg INH DAILY [facility] Last Admin: 09/01/18 10:28 Dose: 18 mcg Results - Vital Signs Recent Vital Signs: Last Vital Signs Temp 98.3 F 09/01/18 16:50 Pulse 78 09/01/18 18:00 Resp 19 09/01/18 16:50 BP 145/65 09/01/18 17:22 Pulse Ox 96 09/01/18 16:50 - Labs Result Diagrams: 09/01/18 06:00 08/31/18 23:30 Labs: Laboratory Results - last 24 hr 08/31/18 08/31/18 08/31/18 23:30 23:30 23:30 WBC 6.7 RBC 2.22 L Hgb 6.6 L* D Hct 20.7 L* MCV 93.2 MCH 29.7 MCHC 31.9 RDW 12.9 Plt Count 229 MPV 9.3 Neut % (Auto) 66.3 Lymph % (Auto) 22.8 [place] % (Auto) 9.7 H Eos % (Auto) 0.9 L Baso % (Auto) 0.3 Lymph # (Auto) 1.5 [place] # (Auto) 0.7 H Eos # (Auto) 0.1 Baso # (Auto) 0.02 Absolute Neuts (auto) 4.43 PT 12.7 H INR 1.14 APTT 72.7 H Sodium 141 Potassium 4.0 Chloride 109 H Carbon Dioxide 25 Anion Gap 11 BUN 26 H Creatinine 1.4 Est GFR ( Amer) > 60 Est GFR (Non-Af Amer) 50 Random Glucose 103 Calcium 9.0 Iron TIBC % Saturation Transferrin Total Bilirubin 0.2 AST 24 ALT 21 Alkaline Phosphatase 96 Total Protein 6.8 Albumin 3.9 Globulin 2.9 Albumin/Globulin Ratio 1.3 Blood Type Antibody Screen Crossmatch BBK History Checked 08/31/18 09/01/18 09/01/18 23:30 06:00 09:20 WBC 8.0 RBC 2.40 L Hgb 7.2 L Hct 22.2 L MCV 92.5 MCH 30.0 MCHC 32.4 RDW 12.8 Plt Count 202 MPV 9.5 Neut % (Auto) Lymph % (Auto) [place] % (Auto) Eos % (Auto) Baso % (Auto) Lymph # (Auto) [place] # (Auto) Eos # (Auto) Baso # (Auto) Absolute Neuts (auto) PT 13.5 H INR 1.19 APTT 66.5 H Sodium Potassium Chloride Carbon Dioxide Anion Gap BUN Creatinine Est GFR ( Amer) Est GFR (Non-Af Amer) Random Glucose Calcium Iron TIBC % Saturation Transferrin Total Bilirubin AST ALT Alkaline Phosphatase Total Protein Albumin Globulin Albumin/Globulin Ratio Blood Type B POSITIVE Antibody Screen Negative Crossmatch See Detail BBK History Checked Patient has bt 09/01/18 09/01/18 13:10 13:10 WBC RBC Hgb Hct MCV MCH MCHC RDW Plt Count MPV Neut % (Auto) Lymph % (Auto) [place] % (Auto) Eos % (Auto) Baso % (Auto) Lymph # (Auto) [place] # (Auto) Eos # (Auto) Baso # (Auto) Absolute Neuts (auto) PT INR APTT Sodium Potassium Chloride Carbon Dioxide Anion Gap BUN Creatinine Est GFR ( Amer) Est GFR (Non-Af Amer) Random Glucose Calcium Iron 25 L TIBC 462 % Saturation 5 L Transferrin 324.02 Total Bilirubin AST ALT Alkaline Phosphatase Total Protein Albumin Globulin Albumin/Globulin Ratio Blood Type Antibody Screen Crossmatch BBK History Checked Attending/Attestation - Attestation I have personally seen and examined this patient.: Yes I have fully participated in the care of the patient.: Yes I have reviewed all pertinent clinical information: Yes Notes (Text): This patient was seen and evaluated the area along with the GI fellow. This is an addendum to the GI consultation report dictated by the fellow. The patient was admitted with a significant anemia questionable history of dark stool before. Today the rectal examination done by the fellow revealed only brown stool. Patient was receiving 2 units of blood at the time of examination earlier today. Patient's PTT was elevated. Normocytic anemia. Discussed with the Dr. Martinez. Hematology consult requested. We will reschedule the patient for EGD after review of the above. No other 09/01/18 22:12
[2018-09-01] MEDS ORDERED: Iohexol 240 (50 ml) ONE (21:22)
--- NOTE | 2018-09-01 23:32 | HP ---
DATE OF EXAM: 09/01/2018 CHIEF COMPLAINT AND HISTORY OF PRESENT ILLNESS: This is a 73-year-old male who is coming into the hospital with past medical history of hypertension and COPD with low hemoglobin by CBC done as an outpatient. The patient's primary care doctor had ordered a CBC and was found to have hemoglobin that was low. The patient was admitted for evaluation. He was having dark tarry stools. The patient states he taking aspirin. He had a prostate biopsy in June that went well. He has no complaints of any fevers or chills. No nausea. No vomiting. No abdominal pain. No back pain. No dysuria or frequency. No nocturia. REVIEW OF SYSTEMS: All other review of symptoms are within normal limits except that was mentioned. SOCIAL HISTORY: He smokes one pack per day greater than 30 years. No drinking alcohol. He works at a post office. He is independent of his ADL. FAMILY HISTORY: Daughter had MS. Maternal grandmother of cerebral aneurysm. PAST SURGICAL HISTORY: Right inguinal hernia repair and tonsillectomy. PAST MEDICAL HISTORY: COPD and hypertension. PHYSICAL EXAMINATION: VITAL SIGNS: Temperature is 98.3, pulse is 78, blood pressure is 145/65, respirations 19, and O2 saturations 96%. Height 5 feet 6 inches, weight 164 pounds, and BMI is 25. GENERAL: The patient is lying in bed, comfortable, and in no acute distress. HEENT: Atraumatic and normocephalic. Anicteric sclerae. Moist mucosa. [place] conjunctivae. No oral lesions. NECK: No JVD, anterior and posterior adenopathy, thyromegaly, or bruits. CARDIOVASCULAR: S1 and S2 regular. No murmurs, rubs or gallops. LUNGS: Clear to auscultation bilaterally. No wheezes, rales, or rhonchi. ABDOMEN: Bowel sounds are positive. Soft, nontender and nondistended. No hepatosplenomegaly. No rebound and no guarding. EXTREMITIES: No cyanosis, clubbing, or edema. NEUROLOGIC: No facial asymmetry. Tongue is midline. No uvula deviation. Power is 5/5 upper extremities and lower extremities. Sensation intact in upper extremities and lower extremities. PSYCHIATRIC: He is awake, alert and oriented x3. No anxiety or depression. He has normal affect. GENITOURINARY: No CVA tenderness. VASCULAR: 2+ pulses in the carotid pulses and pedal pulses. SKIN: No erythema or nodules. SPINE: Shows normal curvature. LABORATORY DATA: White count 6.7, hemoglobin 6.6, and repeat hemoglobin 7.2. INR is 1.1, PT is 12.7 with PTT 72. Chemistry shows creatinine of 1.4, iron saturation is 5%, transferrin is 324, and alk phos is 96. EKG shows sinus rhythm with PACs, heart rate 83, and QTc of 427. ASSESSMENT: 1. Acute anemia secondary to blood loss. 2. Elevated PTT. 3. Chronic obstructive pulmonary disease. 4. Smoking. 5. Hypertension. 6. Chronic kidney disease, stage III. PLAN: The patient is currently comfortable. I will get GI and Hematology evaluation. The patient is going to be on losartan for hypertension. He is on amlodipine for hypertension. He is going to continue with nicotine patch for smoking. The patient was given IV fluids. He is on a liquid diet. He received of transfusion. I did speak to Dr. Penaloza, about the case. The patient has an elevated PT and PTT, we will need further evaluation for this. The patient is going to be on Brovana for COPD. CT of the abdomen and pelvis has been ordered. He will get repeat blood work tomorrow. I will repeat his INR. We will await further input from the consultants. The patient is on Protonix. Tra Menezes MD
[2018-09-02 06:39] LABS: HEMOGLOBIN 8.8 g/dL (14.0-18.0); MEAN CELL VOLUME 90.1 fl (80.0-105.0); MEAN CORPUSCULAR HEMOGLOBIN 29.1 pg (25.0-35.0); MEAN CORPUSCULAR HGB CONC 32.4 g/dl (31.0-37.0); MEAN PLATELET VOLUME 9.5 fl (7.0-11.0); RBC 3.02 10^6/uL (3.5-6.1); RED CELL DISTRIBUTION WIDTH 13.2 % (11.5-14.5); WHITE BLOOD COUNT 7.3 10^3/uL (4.5-11.0)
[2018-09-02 06:43] LABS: INR 1.19; PROTHROMBIN TIME 13.5 SECONDS (9.4-12.5)
[2018-09-02] MEDS: Arformoterol 15 mcg/2 ml Inh Sol IH SCH (08:20)
[2018-09-02] MEDS: Budesonide 0.5 mg/2 ml Inhal Susp UD IH SCH (08:20)
[2018-09-02 08:36] VITALS: BP 126/60; PULSE 78; RESP 18; TEMP 97.6
--- NOTE | 2018-09-02 09:31 | CP.PCM.CON ---
<TaylorDao - Last Filed: 09/02/18 09:31> History of Present Illness - History of Present Illness History of Present Illness: Onc consult (Tomas): Taylor Reason for consult: Elevated INR/PTT Consult requested by: Dr. Menezes 73 M with pertinent medical history of recent prostate biopsy and dark stools presented to [facility] ED on 08/31 with GIb. Patient was noted to be anemic with Hgb of 6.6 in the ED here. Patient was transfused two units of blood, but his hgb did not respond appropriately. Patient was also found to have elevated INR/PTT, which is why Heme/Onc was consulted. Patient himself denies any complaints at this time, but does admit to continued dark stools. He states that this all started after his recent prostate biopsy, after which he also had hematuria; he states this has resolved but he does have blood from time to time in his ejaculate. Review of Systems: 12 point ROS obtained and negative except as per HPI Past medical history: COPD, tobacco abuse, venous stasis, borderline HTN Past surgical history: R inguinal hernia repair, tonsillectomy, sclerotherapy Home meds: Reviewed as per MAR Allergies: NKDA Social history: Smokes 1ppd x 30+yrs, Denies EtoH or drug use. Works at post [employer]. Independent in all ADLs Family history: Daughter: . Parents: - doesnt remember from what. Maternal grandma: from cerebral aneurysm Past Patient History - Infectious Disease Hx of Infectious Diseases: None - Tetanus Immunizations Tetanus Immunization: Unknown - Past Social History Smoking Status: Heavy Smoker > 10 Cigarettes Daily - CARDIAC Hx Pacemaker: No - PULMONARY Hx Chronic Obstructive Pulmonary Disease (COPD): Yes - NEUROLOGICAL Hx Paralysis: No - HEENT Hx HEENT Problems: Yes (eyeglasses) Other/Comment: cap right upper tooth fell out while pt was eating dinner at bedside, pt did not swallow it, put in plastic bag at bedside - RENAL Hx Chronic Kidney Disease: No - ENDOCRINE/METABOLIC Hx Endocrine Disorders: No - HEMATOLOGICAL/ONCOLOGICAL Hx Blood Disorders: Yes Hx Cancer: Yes (skin ca basal cell) Other/Comment: basal cell removed from face, left cheek, right cheek, forehead using mohs procedure - INTEGUMENTARY Hx Dermatological Problems: Yes (dry skin) - MUSCULOSKELETAL/RHEUMATOLOGICAL Hx Musculoskeletal Disorders: Yes (SPINAL STENOSIS) - GASTROINTESTINAL Hx Gastrointestinal Disorders: Yes Other/Comment: 04/29/2012 colonoscopy dx diverticulosis, hemorrhoids, with ulceration - GENITOURINARY/GYNECOLOGICAL Hx Genitourinary Disorders: No - PSYCHIATRIC Hx Emotional Abuse: No Hx Physical Abuse: No Hx Substance Use: No - SURGICAL HISTORY Other/Comment: r inguinal hernia sx, tonsillectomy age 9, circumcision age 23, vasectomy, basal cell removed using mohs procedure from face, forehead right cheek and left cheek - ANESTHESIA Hx Anesthesia Reactions: No Hx Malignant Hyperthermia: No Meds Allergies/Adverse Reactions: Allergies Allergy/AdvReac Type Severity Reaction Status Date / Time No Known Allergies Allergy Verified 06/16/18 11:06 - Medications Medications: Current Medications Amlodipine Besylate (Norvasc) 5 mg PO QPM [facility] Last Admin: 09/01/18 17:22 Dose: 5 mg Arformoterol Tartrate (Brovana) 15 mcg IH DAILY@0800 [facility] Last Admin: 09/02/18 08:20 Dose: 15 mcg Atorvastatin Calcium (Lipitor) 20 mg PO DIN [facility] Last Admin: 09/01/18 17:23 Dose: 20 mg Budesonide (Pulmicort Respules) 0.5 mg IH DAILY@0800 [facility] Last Admin: 09/02/18 08:20 Dose: 0.5 mg Losartan Potassium (Cozaar) 100 mg PO QPM [facility] Last Admin: 09/01/18 17:22 Dose: 100 mg Nicotine (Nicoderm Cq) 1 patch TD DAILY [facility] Last Admin: 09/01/18 10:27 Dose: 1 patch Pantoprazole Sodium (Protonix Inj) 40 mg IVP Q12 [facility] Last Admin: 09/01/18 21:35 Dose: 40 mg Tiotropium [place] (Spiriva) 18 mcg INH DAILY [facility] Last Admin: 09/01/18 10:28 Dose: 18 mcg Physical Exam - Constitutional Appears: Well - Head Exam Head Exam: ATRAUMATIC, NORMAL INSPECTION, NORMOCEPHALIC - Eye Exam Eye Exam: EOMI, Normal appearance, PERRL Pupil Exam: NORMAL ACCOMODATION, PERRL - ENT Exam ENT Exam: Mucous Membranes Moist, Normal Exam - Neck Exam Neck exam: Positive for: Normal Inspection - Respiratory Exam Respiratory Exam: Clear to Auscultation Bilateral, NORMAL BREATHING PATTERN - Cardiovascular Exam Cardiovascular Exam: REGULAR RHYTHM - GI/Abdominal Exam GI & Abdominal Exam: Normal Bowel Sounds, Soft. absent: Tenderness - Extremities Exam Extremities exam: Positive for: normal inspection - Back Exam Back exam: NORMAL INSPECTION - Neurological Exam Neurological exam: Alert, CN II-XII Intact, Normal Gait, Oriented x3, Reflexes Normal - Psychiatric Exam Psychiatric exam: Normal Affect, Normal Mood - Skin Skin Exam: Dry, Intact, Normal Color, Warm Results - Vital Signs Recent Vital Signs: Last Vital Signs Temp 97.6 F 09/02/18 08:35 Pulse 78 09/02/18 08:35 Resp 18 09/02/18 08:35 BP 126/60 09/02/18 08:35 Pulse Ox 96 09/02/18 08:35 - Labs Result Diagrams: 09/02/18 06:15 08/31/18 23:30 Labs: Laboratory Results - last 24 hr 08/31/18 09/01/18 09/01/18 23:30 09:20 13:10 WBC RBC Hgb Hct MCV MCH MCHC RDW Plt Count MPV PT 13.5 H INR 1.19 APTT 66.5 H Iron 25 L TIBC 462 % Saturation 5 L Transferrin Blood Type B POSITIVE Antibody Screen Negative Crossmatch See Detail BBK History Checked Patient has bt 09/01/18 09/02/18 09/02/18 13:10 06:15 06:15 WBC 7.3 RBC 3.02 L Hgb 8.8 L Hct 27.2 L MCV 90.1 MCH 29.1 MCHC 32.4 RDW 13.2 Plt Count 196 MPV 9.5 PT 13.5 H INR 1.19 APTT 78.0 H Iron TIBC % Saturation Transferrin 324.02 Blood Type Antibody Screen Crossmatch BBK History Checked Assessment & Plan - Assessment and Plan (Free Text) Assessment: 73 M presenting with elevated INR and aPTT; patient was found to have low hemoglobin on admission and was transfused two units of blood. At this time, we will give patient IV Fe to supplement blood transfusions; we will also obtain a work up to rule out causes for a bleeding diathesis, which includes Factor IX, XI, XII, VIII, Lupus Anticoagulant, Von Willebrand Factor. We agree with GI consultation and will also put two more units on hold, as well as obtain H/H q4 hours. <Maria Alejandra Marin P - Last Filed: 09/05/18 00:06> Results - Vital Signs Recent Vital Signs: Last Vital Signs Temp 97.6 F 09/02/18 08:35 Pulse 78 09/02/18 08:35 Resp 18 09/02/18 08:35 BP 126/60 09/02/18 08:35 Pulse Ox 96 09/02/18 08:35 - Labs Result Diagrams: 09/02/18 14:00 08/31/18 23:30 Attending/Attestation - Attestation I have personally seen and examined this patient.: Yes I have fully participated in the care of the patient.: Yes I have reviewed all pertinent clinical information: Yes
[2018-09-02] MEDS: Tiotropium 18 mcg Cap For Inhalation INH SCH (10:06)
[2018-09-02 10:50] LABS: HEMOGLOBIN 8.6 g/dL (14.0-18.0)
--- NOTE | 2018-09-02 11:03 | DS ---
HISTORY OF PRESENT ILLNESS: The patient has no complaints of any chest pain. No shortness of breath. No headaches, no dizziness. He is feeling well. He has no complaints of any abdominal pain. No back pain. No dysuria or frequency. The patient has an elevated PT, PTT and is being evaluated by Hematology. PHYSICAL EXAMINATION: VITAL SIGNS: Temperature is 97.6, pulse is 78, blood pressure is 126/60 and respirations is 18. GENERAL: The patient is lying in bed, flat, comfortable. HEENT: No oral lesion. Anicteric sclerae. Moist mucosa. NECK: No JVD, adenopathy, or thyromegaly. CARDIOVASCULAR: S1 and S2, regular. No murmurs, rubs, or gallops. LUNGS: Clear to auscultation bilaterally. No wheeze, rales, or rhonchi. ABDOMEN: Bowel sounds are positive, soft, nontender and nondistended. EXTREMITIES: No cyanosis, clubbing or edema. LABORATORY DATA: White count is 7.3, hemoglobin 8.8, creatinine is 1.4. CT of the abdomen and pelvis is pending. ASSESSMENT: 1. Acute anemia secondary to blood loss. 2. Coagulopathy with elevated PTT. 3. Chronic obstructive pulmonary disease. 4. Smoking. 5. Hypertension. 6. Chronic kidney disease, stage III. PLAN: The patient has an elevated PTT, they are concerned that the patient may have either a factor deficiency or inhibitor. We will hold off on any endoscopy until the workup is complete. The patient's hemoglobin has been stable at 8.8 this morning. He is on Losartan for hypertension. He is on Lipitor for dyslipidemia. The patient is on Protonix twice a day. I did speak to the Dr. Penaloza regarding the case, awaiting final results of the CAT scan, it is normal plan on discharging the patient home. There are no procedures plan by Dr. Penaloza. CONDITION: Stable. ACTIVITIES: As tolerated. FOLLOWUP: 1. Followup with Dr. Marin in one to two weeks. 2. Followup with Dr. Penaloza in one to two weeks. 3. Followup with primary care doctor Dr. Manning in one to two weeks. Tra Menezes MD [facility] # [id number]
--- NOTE | 2018-09-02 12:31 | CT ---
Date of service: 09/01/2018 PROCEDURE: CT Abdomen and Pelvis without intravenous contrast HISTORY: abdominal pain COMPARISON: None. TECHNIQUE: Without contrast.. Contrast dose: Radiation dose: Total exam DLP = 302.33 mGy-cm. This CT exam was performed using one or more of the following dose reduction techniques: Automated exposure control, adjustment of the mA and/or kV according to patient size, and/or use of iterative reconstruction technique. FINDINGS: LOWER THORAX: Unremarkable. LIVER: Unremarkable. No gross lesion or ductal dilatation. GALLBLADDER AND BILE DUCTS: Unremarkable. PANCREAS: Unremarkable. No gross lesion or ductal dilatation. SPLEEN: Unremarkable. ADRENALS: Unremarkable. No mass. KIDNEYS AND URETERS: There is minimal bilateral perinephric stranding. This could represent a chronic finding. Pyelonephritis cannot be excluded. Clinical correlation is suggested. Small bilateral nonobstructing stones are seen in both kidneys VASCULATURE: Unremarkable. No aortic aneurysm. There is a 4.4 cm infrarenal abdominal aortic aneurysm. The aorta is calcified. 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 BOWEL: Unremarkable. No obstruction. No gross mural thickening. APPENDIX: Unremarkable. Normal appendix. PERITONEUM: Unremarkable. No free fluid. No free air. LYMPH NODES: Unremarkable. No enlarged lymph nodes. BLADDER: Unremarkable. REPRODUCTIVE: Unremarkable. BONES: No acute fracture. OTHER FINDINGS: The report concurs with the preliminary [facility] report IMPRESSION: There is minimal bilateral perinephric stranding. This could represent a chronic finding. Pyelonephritis cannot be excluded. Clinical correlation is suggested. Small bilateral nonobstructing stones are seen in both kidneys
--- NOTE | 2018-09-02 14:37 | CP.PCM.PN ---
<Ronald De La Paz - Last Filed: 09/02/18 14:34> Subjective - Date & Time of Evaluation Date of Evaluation: 09/02/18 Time of Evaluation: 08:00 - Subjective Subjective: PGY6 GI Fellow Progress Note Patient seen and examined bedside this morning. The patient denies any complaints at present and has no evidence for overt GI bleeding. No abdominal pain. Passing brown stool. 12 system ROS performed and negative except where stated Objective - Vital Signs/Intake and Output Vital Signs (last 24 hours): Temp Pulse Resp BP Pulse Ox 97.6 F 78 18 126/60 96 09/02/18 08:35 09/02/18 08:35 09/02/18 08:35 09/02/18 08:35 09/02/18 08:35 - Medications Medications: Current Medications Amlodipine Besylate (Norvasc) 5 mg PO QPM [facility] Last Admin: 09/01/18 17:22 Dose: 5 mg Arformoterol Tartrate (Brovana) 15 mcg IH DAILY@0800 [facility] Last Admin: 09/02/18 08:20 Dose: 15 mcg Atorvastatin Calcium (Lipitor) 20 mg PO DIN [facility] Last Admin: 09/01/18 17:23 Dose: 20 mg Budesonide (Pulmicort Respules) 0.5 mg IH DAILY@0800 [facility] Last Admin: 09/02/18 08:20 Dose: 0.5 mg Losartan Potassium (Cozaar) 100 mg PO QPM [facility] Last Admin: 09/01/18 17:22 Dose: 100 mg Nicotine (Nicoderm Cq) 1 patch TD DAILY [facility] Last Admin: 09/02/18 10:06 Dose: 1 patch Pantoprazole Sodium (Protonix Inj) 40 mg IVP Q12 [facility] Last Admin: 09/02/18 10:05 Dose: 40 mg Tiotropium Olancha (Spiriva) 18 mcg INH DAILY [facility] Last Admin: 09/02/18 10:06 Dose: 18 mcg - Labs Labs: 09/02/18 14:00 08/31/18 23:30 PT 13.5 SECONDS (9.4-12.5) H 09/02/18 06:15 INR 1.19 09/02/18 06:15 APTT 78.0 Seconds (26.9-38.3) H 09/02/18 06:15 - Constitutional Appears: Non-toxic, No Acute Distress - Eye Exam Eye Exam: EOMI, PERRL - ENT Exam ENT Exam: Mucous Membranes Moist - Respiratory Exam Respiratory Exam: Clear to Ausculation Bilateral. absent: Rales, Rhonchi, Wheezes - Cardiovascular Exam Cardiovascular Exam: RRR, +S1, +S2 - GI/Abdominal Exam GI & Abdominal Exam: Soft, Normal Bowel Sounds. absent: Distended, Firm, Guarding, Rigid, Tenderness, Organomegaly - Extremities Exam Extremities Exam: Normal Inspection. absent: Pedal Edema - Neurological Exam Neurological Exam: Alert, Awake, Oriented x3 - Psychiatric Exam Psychiatric exam: Normal Affect, Normal Mood - Skin Skin Exam: Dry, Warm Assessment and Plan - Assessment and Plan (Free Text) Assessment: Patient is a 73yo male with PMHx significant for COPD and HTN who presented to the ED, sent by PCP for evaluation of anemia -Chronic normocytic anemia -Chronic elevation of elevation of PT/PTT -COPD -HTN Plan: -PT/PTT remain elevated - suspect coagulopathy, ? factor deficiency - work up ongoing -The patient has no signs of overt bleeding, H/H has remained stable since transfusion -Recommend coagulopathy woprk up with hematology and once cleared, endoscopic evaluation -CT abdomen/pelvis showed ? pyelonephritis - patient does not have symptoms to suggest this issue - consider U/A -OK with D/C and outpatient follow up -Diet as tolerated <All Penaloza V - Last Filed: 09/03/18 01:44> Objective - Vital Signs/Intake and Output Vital Signs (last 24 hours): Temp Pulse Resp BP Pulse Ox 97.6 F 78 18 126/60 96 09/02/18 08:35 09/02/18 08:35 09/02/18 08:35 09/02/18 08:35 09/02/18 08:35 - Labs Labs: 09/02/18 14:00 08/31/18 23:30 PT 13.5 SECONDS (9.4-12.5) H 09/02/18 06:15 INR 1.19 09/02/18 06:15 APTT 78.0 Seconds (26.9-38.3) H 09/02/18 06:15 Attending/Attestation - Attestation I have personally seen and examined this patient.: Yes I have fully participated in the care of the patient.: Yes I have reviewed all pertinent clinical information, including history, physical exam and plan: Yes Notes (Text): This is an addendum to the GI progress note dictated by the fellow. Discussed with the er medical technician Dr. Marin. Patient does have elevated PTT. Etiology un clear. The differential diagnosis should include a lupus anticoagulant versus factor deficiency. Admitted with severe anemia status post transfusion hemoglobin stable. No obvious melena or GI bleeding. Continue empiric PPI therapy Patient would need a EGD after hematology clearance. Since the patient does not have any active bleeding or melena at the present time and hemoglobin stable he would prefer to await for rash hematologically evaluation regarding the coagulation status prior to the endoscopy evaluation. Consider urgent EGD any active bleeding occurs this was explained to the patient at length. Patient is advised follow-up with the Dr. Marin and also with the primary care physician and advised to follow-up in our office to have the EGD done soon 09/03/18 01:41
--- NOTE | 2018-09-02 18:22 | CP.PCM.PN ---
Subjective - Date & Time of Evaluation Date of Evaluation: 09/02/18 Time of Evaluation: 18:16 - Subjective Subjective: Heme/onc progress note - Taylor PGY - 2 Patient seen and examined at bedside. No new acute overnight events. Patient denies any dark stools; feels better today. Denies any new complaints. Objective - Vital Signs/Intake and Output Vital Signs (last 24 hours): Temp Pulse Resp BP Pulse Ox 97.6 F 78 18 126/60 96 09/02/18 08:35 09/02/18 08:35 09/02/18 08:35 09/02/18 08:35 09/02/18 08:35 - Labs Labs: 09/02/18 14:00 08/31/18 23:30 PT 13.5 SECONDS (9.4-12.5) H 09/02/18 06:15 INR 1.19 09/02/18 06:15 APTT 78.0 Seconds (26.9-38.3) H 09/02/18 06:15 - Constitutional Appears: Well - Head Exam Head Exam: ATRAUMATIC, NORMAL INSPECTION, NORMOCEPHALIC - Eye Exam Eye Exam: EOMI, Normal appearance, PERRL Pupil Exam: NORMAL ACCOMODATION, PERRL - ENT Exam ENT Exam: Mucous Membranes Moist, Normal Exam - Neck Exam Neck Exam: Full ROM, Normal Inspection. absent: Lymphadenopathy - Respiratory Exam Respiratory Exam: Clear to Ausculation Bilateral, NORMAL BREATHING PATTERN - Cardiovascular Exam Cardiovascular Exam: REGULAR RHYTHM, +S1, +S2. absent: Murmur - GI/Abdominal Exam GI & Abdominal Exam: Soft, Normal Bowel Sounds. absent: Tenderness - Extremities Exam Extremities Exam: Full ROM, Normal Capillary Refill, Normal Inspection. absent: Joint Swelling, Pedal Edema - Back Exam Back Exam: NORMAL INSPECTION - Neurological Exam Neurological Exam: Alert, Awake, CN II-XII Intact, Normal Gait, Oriented x3 - Psychiatric Exam Psychiatric exam: Normal Affect, Normal Mood - Skin Skin Exam: Dry, Intact, Normal Color, Warm Assessment and Plan - Assessment and Plan (Free Text) Assessment: 73 M presenting with elevated INR and aPTT; patient was found to have low hemoglobin on admission and was transfused two units of blood. At this time, we will give patient IV Fe to supplement blood transfusions; we will also obtain a work up to rule out causes for a bleeding diathesis, which includes Factor IX, XI, XII, VIII, Lupus Anticoagulant, Von Willebrand Factor. No further need for q4 H/H; We agree with outpatient GI follow up and with further work up outpatient for heme/onc.
[2018-09-05 12:13] LABS: VON WILLERBRAND FACTOR AG 169 % (50-217)
[2018-09-05 15:54] LABS: VON WILLERBRAND FACTOR AG 197 % (50-217)
[2018-09-05 23:03] LABS: THROMBIN CLOTTING TIME 15 sec (13-19)
== END 2018-09-02 16:30 | disposition home or self-care (01) | DRG 812 ==
LOC: ED 22:14 → ERH 09-01 00:53 → 3RNO 09-01 04:13
PROVIDERS: ADMIT Internal Medicine Nephrology; ATTEND Internal Medicine Nephrology
PROC: 30233N1 Transfusion of Nonautologous Red Blood Cells into Peripheral Vein, Percutaneous Approach (ICD-10-PCS; principal; 2018-09-01)
DX: D62 Acute posthemorrhagic anemia (principal); I12.9 Hypertensive chronic kidney disease with stage 1 through stage 4 chronic kidney disease, or unspecified chronic kidney disease; N18.3 Chronic kidney disease, stage 3 (moderate); R79.1 Abnormal coagulation profile; E78.5 Hyperlipidemia, unspecified; F17.210 Nicotine dependence, cigarettes, uncomplicated; I87.8 Other specified disorders of veins; J44.9 Chronic obstructive pulmonary disease, unspecified; Z79.82 Long term (current) use of aspirin; Z79.51 Long term (current) use of inhaled steroids

== ENCOUNTER 2018-09-21 12:42 | Day surgery (SDC) | payer BC, MEDICARE ==
[2018-09-21 13:23] LABS: BASO # 0.02 K/mm3 (0.0-2.0); BASO % 0.3 % (0.0-3.0); EOS # 0.1 (0.0-0.7); EOS % 1.2 % (1.5-5.0); HEMOGLOBIN 9.9 g/dL (14.0-18.0); LYMPH # 1.4 (1.2-3.4); LYMPH % 24.4 % (22.0-35.0); MEAN CELL VOLUME 89.2 fl (80.0-105.0); MEAN CORPUSCULAR HEMOGLOBIN 28.1 pg (25.0-35.0); MEAN CORPUSCULAR HGB CONC 31.5 g/dl (31.0-37.0); MEAN PLATELET VOLUME 9.1 fl (7.0-11.0); MONO # 0.5 (0.1-0.6); MONO % 8.4 % (1.0-6.0); RBC 3.52 10^6/uL (3.5-6.1); RED CELL DISTRIBUTION WIDTH 13.8 % (11.5-14.5); WHITE BLOOD COUNT 5.8 10^3/uL (4.5-11.0)
[2018-09-21] MEDS ORDERED: Propofol 10 mg/ml Inj (20 ML) ONE (15:10)
[2018-09-21] MEDS ORDERED: Simethicone 40 mg/0.6 ml Liquid (30 ml) ONE (15:20)
[2018-09-21] MEDS ORDERED: Sodium Chloride 0.9% 1,000 ML IV SCH (15:30)
[2018-09-21 16:18] VITALS: BP 129/56; RESP 16; TEMP 97.6
[2018-09-21 17:13] VITALS: PULSE 77; O2SAT 99
== END 2018-09-21 17:07 | disposition home or self-care (01) ==
LOC: ENDO 12:42
PROVIDERS: ATTEND Internal Medicine Gastroenterology
DX: D50.9 Iron deficiency anemia, unspecified (principal); K25.9 Gastric ulcer, unspecified as acute or chronic, without hemorrhage or perforation; K29.70 Gastritis, unspecified, without bleeding; I12.9 Hypertensive chronic kidney disease with stage 1 through stage 4 chronic kidney disease, or unspecified chronic kidney disease; N18.3 Chronic kidney disease, stage 3 (moderate); J44.9 Chronic obstructive pulmonary disease, unspecified; D68.61 Antiphospholipid syndrome
CPT/HCPCS: 36415; 43239; 85025; 88305; 88342; J2001; J2704; J3010; J7030; J7040

== ENCOUNTER 2018-09-23 14:45 | Day surgery (SDC) | payer BC, MEDICARE ==
[2018-09-23] MEDS ORDERED: Lactated Ringer's 1,000 ML IV SCH (17:30)
[2018-09-23] MEDS ORDERED: Propofol 10 mg/ml Inj (20 ML) ONE (17:32)
[2018-09-23 19:04] VITALS: BP 140/61; PULSE 67; RESP 18; TEMP 97.8; O2SAT 98
== END 2018-09-23 19:35 | disposition home or self-care (01) ==
LOC: ENDO 14:45
PROVIDERS: ATTEND Internal Medicine Gastroenterology
DX: K92.1 Melena (principal); D50.9 Iron deficiency anemia, unspecified; K57.30 Diverticulosis of large intestine without perforation or abscess without bleeding; K64.8 Other hemorrhoids; K63.3 Ulcer of intestine; I10 Essential (primary) hypertension; J44.9 Chronic obstructive pulmonary disease, unspecified
CPT/HCPCS: 45380; 88305; J2704; J7040; J7120